=== PATIENT | female | born 1995 | race Caucasian/White ===

== ENCOUNTER 2020-02-11 08:53 | Outpatient (NON) | payer OTHER, SELFPAY ==
[2020-02-12 01:01] LABS: SARS-CoV-2 RNA PCR Positive
== END 2020-02-11 08:54 ==
LOC: ANHCOVIDDT 08:54
PROVIDERS: PCP Internal Medicine; Visit Provider Internal Medicine
DX: U07.1 COVID-19 (principal); R68.89 Other general symptoms and signs
CPT/HCPCS: 87635; C9803; U0003